=== PATIENT | male | born 2000 | race African-American/Black ===

== ENCOUNTER 2024-12-13 09:11 | Emergency (ER) | payer OTHER ==
[~2024-12-13] VITALS: Ht 195.6 cm; Wt 109.0 kg
[2024-12-13 09:30] VITALS: TEMP 97.8
[2024-12-13] MEDS ORDERED: METF-839 PO (09:57)
[2024-12-13 11:14] LABS: CALCIUM LEVEL 9.2 MG/DL (8.5-10.1); CARBON DIOXIDE LEVEL 29 MMOL/L (20-31); CHLORIDE LEVEL 104 MMOL/L (98-107); CREATININE FOR GFR 1.06 MG/DL (0.70-1.30); GLOMERULAR FILTRATION RATE > 90.0 (>60); POTASSIUM SERUM 4.7 MMOL/L (3.5-5.1); SODIUM LEVEL 141 MMOL/L (136-145)
[2024-12-13 12:30] VITALS: BP 125/63
[2024-12-13 12:31] VITALS: O2SAT 99
== END 2024-12-13 12:50 | disposition home or self-care (01) ==
LOC: EDBD 09:11 → M ED 09:11
DX: E87.70 Fluid overload, unspecified (principal)